=== PATIENT | female | born 1975 | race Caucasian/White ===

== ENCOUNTER 2023-04-14 22:40 | Emergency (ER) | payer MEDICAID ==
[~2023-04-14] VITALS: Ht 160 cm; Wt 49.0 kg
[2023-04-14 22:46] VITALS: BP_SYST 117; PULSE 92; RESP 16; TEMP 97.9; O2SAT 98
[2023-04-14 23:56] VITALS: BP_SYST 132; PULSE 70; RESP 18; TEMP 97.9; O2SAT 97
== END 2023-04-14 23:56 | disposition home or self-care (01) ==
LOC: SED 22:40
DX: S09.90XD Unspecified injury of head, subsequent encounter (principal); Z53.21 Procedure and treatment not carried out due to patient leaving prior to being seen by health care provider; W22.8XXD Striking against or struck by other objects, subsequent encounter
CPT/HCPCS: 99281

== ENCOUNTER 2024-02-10 19:07 | Inpatient (IN) | payer MEDICAID ==
[~2024-02-10] VITALS: Ht 160 cm; Wt 44.5 kg
[2024-02-10 19:17] VITALS: BP_SYST 91; BP_SYST 97; PULSE 115; PULSE 80; RESP 18; TEMP 98; O2SAT 98
[2024-02-10] MEDS ORDERED: AZITHROMYCIN 500 MG/VIAL (ZITHROMAX) IV ONE (21:20)
[2024-02-10 21:26] LABS: BLOOD GAS HCO3 22.4 mmol/L (21.0-28.0); BLOOD GAS PCO2 30.5 mmHg (32.0-45.0); BLOOD GAS PH 7.483 (7.350-7.450); BLOOD GAS PO2 61.9 mmHg (83.0-108.0)
[2024-02-10 21:27] LABS: ABG O2 SAT% ESTIMATE 93.6 % (94.0-98.0); BLOOD GAS BASE EXCESS -0.3 mmol/L (-2.0-3.0)
[2024-02-10] MEDS: NACL 0.9% 1,000 ML IV ONE (21:28)
[2024-02-10] MEDS: AZITHROMYCIN 500 MG in NS 250 ML IV ONE (21:29)
[2024-02-10 21:34] LABS: BASOPHILS % (AUTO) 0.1 % (0.0-2.0); HEMATOCRIT 32.8 % (36-48); HEMOGLOBIN 11.2 g/dL (12.0-16.0); LYMPHOCYTES # (AUTO) 0.5 K/uL (1.0-5.5); LYMPHOCYTES % (AUTO) 3.9 % (20.5-51.5); MEAN CORPUSCULAR HEMOGLOBIN 29 pg (27-31); MEAN CORPUSCULAR HGB CONC 34 % (32-36); MEAN CORPUSCULAR VOLUME 86 fL (79.0-98.0); MONOCYTES # (AUTO) 0.9 K/uL (0.0-1.0); MONOCYTES % (AUTO) 7.2 % (1.7-9.3); NEUTROPHILS # (AUTO) 11.7 K/uL (1.8-7.7); NEUTROPHILS % (AUTO) 88.8 % (40.0-70.0); PLATELET COUNT (AUTO) 216 K/uL (130-430); RED BLOOD CELL COUNT(AUTO) 3.82 MIL/uL (4.2-6.2); RED CELL DISTRIBUTION WIDTH 15.6 % (9.0-15.0); WHITE BLOOD COUNT (AUTO) 13.1 K/uL (4.8-10.8)
[2024-02-10 21:59] LABS: ALBUMIN 2.9 g/dL (3.4-4.8); BILIRUBIN,DIRECT 0.3 mg/dL (0.0-0.3); CALCIUM 8.9 mg/dL (8.4-11.0); CREATININE 0.96 mg/dL (0.55-1.30); POTASSIUM 3.3 mmol/L (3.5-5.1); TOTAL BILIRUBIN 0.9 mg/dL (0.0-1.0); TOTAL PROTEIN, SERUM 6.8 g/dL (6.4-8.3)
[2024-02-10] MEDS: cefTRIAXone 1 GM IVPB PREMIX 50 ML IV ONE (22:19)
[2024-02-10 22:54] LABS: INFLUENZA TYPE A Negative (NEGATIVE); INFLUENZA TYPE B NEGATIVE (NEGATIVE)
[2024-02-10] MEDS ORDERED: ACETAMINOPHEN 650 MG SUPP.RECT RC PRN (23:45)
[2024-02-10] MEDS ORDERED: CLON1TAB12 PO (23:56)
[2024-02-11] VITALS (8 sets, daily range): BP systolic 93–105; PULSE 80–96; RESP 16–20; TEMP 97.6–98.5; O2SAT 95–100
[2024-02-11] MEDS: POTASSIUM CHLORIDE 20 MEQ TABLET.ER PO ONE (00:22)
[2024-02-11] MEDS: ACETAMINOPHEN 650 MG SUPP.RECT RC PRN (02:07)
[2024-02-11 06:51] LABS: BASOPHILS % (AUTO) 0.2 % (0.0-2.0); EOSINOPHILS % (AUTO) 0.2 % (0.0-4.0); HEMATOCRIT 32.4 % (36-48); HEMOGLOBIN 10.7 g/dL (12.0-16.0); LYMPHOCYTES # (AUTO) 0.7 K/uL (1.0-5.5); MEAN CORPUSCULAR HEMOGLOBIN 29 pg (27-31); MEAN CORPUSCULAR HGB CONC 33 % (32-36); MEAN CORPUSCULAR VOLUME 87 fL (79.0-98.0); NEUTROPHILS % (AUTO) 87.6 % (40.0-70.0); PLATELET COUNT (AUTO) 230 K/uL (130-430); RED BLOOD CELL COUNT(AUTO) 3.71 MIL/uL (4.2-6.2); RED CELL DISTRIBUTION WIDTH 15.6 % (9.0-15.0); WHITE BLOOD COUNT (AUTO) 13.7 K/uL (4.8-10.8)
[2024-02-11 08:30] LABS: ALBUMIN 2.7 g/dL (3.4-4.8); CALCIUM 8.5 mg/dL (8.4-11.0); CREATININE 0.73 mg/dL (0.55-1.30); TOTAL BILIRUBIN 0.6 mg/dL (0.0-1.0); TOTAL PROTEIN, SERUM 6.4 g/dL (6.4-8.3)
[2024-02-11] MEDS: POTASSIUM CHLORIDE 20 MEQ TABLET.ER PO SCH (10:24)
[2024-02-11] MEDS: LACTOBACILLUS RHAMNOSUS GG 1 CAP CAPSULE PO SCH (10:24)
[2024-02-11] MEDS ORDERED: ACETAMINOPHEN 325 MG TABLET PO PRN (16:30)
[2024-02-11] MEDS: ACETAMINOPHEN 325 MG TABLET PO PRN (17:45)
[2024-02-11] MEDS: AZITHROMYCIN 500 MG in NS 250 ML IV SCH (20:23)
[2024-02-11] MEDS: BUDESONIDE 0.5 MG/2 ML AMPUL.NEB INH SCH (21:00)
[2024-02-11] MEDS: cefTRIAXone 1 GM in D5W 50 ML IV SCH (21:56)
[2024-02-12 00:15] VITALS: BP_SYST 117; PULSE 86; RESP 16; TEMP 97; O2SAT 98
[2024-02-12] MEDS ORDERED: BUPR1FIL3 SL (00:46)
[2024-02-12] MEDS: IPRATROPIUM/ALBUTEROL SULFATE 3 ML AMPUL.NEB (DUONEB) INH PRN (05:26)
[2024-02-12 08:00] VITALS: BP_SYST 125; PULSE 77; RESP 16; TEMP 96.2; O2SAT 95
[2024-02-12 08:08] VITALS: BP_SYST 125; PULSE 77; RESP 16; TEMP 96.2; O2SAT 95
[2024-02-12 08:58] VITALS: O2SAT 97
[2024-02-12 11:31] VITALS: BP_SYST 115; PULSE 99; RESP 16; TEMP 97; O2SAT 96
== END 2024-02-12 14:55 | disposition left against medical advice (07) | DRG 139 ==
LOC: SED 19:07 → STU 22:14
PROVIDERS: ADMIT Internal Medicine; ATTEND Internal Medicine
DX: J15.9 Unspecified bacterial pneumonia (principal); J96.00 Acute respiratory failure, unspecified whether with hypoxia or hypercapnia; E44.0 Moderate protein-calorie malnutrition; R64 Cachexia; J44.0 Chronic obstructive pulmonary disease with (acute) lower respiratory infection; Z20.822 Contact with and (suspected) exposure to COVID-19; J44.1 Chronic obstructive pulmonary disease with (acute) exacerbation; Z53.21 Procedure and treatment not carried out due to patient leaving prior to being seen by health care provider; Z79.899 Other long term (current) drug therapy; Z68.1 Body mass index [BMI] 19.9 or less, adult; Z87.891 Personal history of nicotine dependence
CPT/HCPCS: 36415; 36600; 71045; 71250-TC; 80048; 80053; 80076; 82803; 83605; 84702; 85025; 86635; 86738; 87040; 87070; 87205; 87449; 94640; 94760; 99285; G0378; J0456; J0696; J7050; J7060; J7626

== ENCOUNTER 2024-02-12 22:44 | Emergency (ER) | payer MEDICAID ==
[~2024-02-12] VITALS: Ht 160 cm; Wt 43.1 kg
[~2024-02-12 22:44] MED LIST: BUPR1FIL3 SL; CLON1TAB12 PO
[2024-02-12 23:02] VITALS: BP_SYST 135; PULSE 89; RESP 20; TEMP 97.9; O2SAT 96
== END 2024-02-12 23:20 | disposition left against medical advice (07) ==
LOC: SED 22:44
DX: R07.81 Pleurodynia (principal); Z53.21 Procedure and treatment not carried out due to patient leaving prior to being seen by health care provider